=== PATIENT | female | born 1945 | race Caucasian/White ===

== ENCOUNTER 2016-12-27 08:15 | Emergency (ER) | payer MEDICARE, BC ==
[2016-12-27] MEDS ORDERED: Ketorolac 60 MG/2 ML SDV IM ONE (09:06)
--- NOTE | 2016-12-27 09:10 | EDM.PDOC ---
ED HPI GENERAL MEDICAL PROBLEM - General Chief Complaint: Genitourinary Problem Stated Complaint: KIDNEY STONES? Time Seen by Provider: 12/27/16 08:59 Source of Information: Reports: Patient, Family, RN Notes Reviewed History Limitations: Reports: No Limitations - History of Present Illness INITIAL COMMENTS - FREE TEXT/NARRATIVE: 71-year-old female presents emergency department day complaint of right flank pain, she has a known history of nephrolithiasis with retained stones last kidney stone was about 8 years ago. For this particular event she states started at 5:30 this morning sudden onset of sharp pain in the right flank that we will wax and wane she has not noticed any blood in her urine does get nauseated with the pain right flank Pain Score (Numeric/FACES): 4 - Related Data Allergies Allergy/AdvReac Type Severity Reaction Status Date / Time ELISEO Inhibitors Allergy Cough Verified 12/27/16 08:31 lisinopril Allergy Cough Verified 12/27/16 08:31 meperidine [From Demerol] Allergy Cough Verified 12/27/16 08:31 promazine Allergy Anaphylactic Verified 12/27/16 09:24 Shock Home Meds: Home Meds Aspirin 81 mg PO DAILY 12/27/16 [History] Celecoxib 200 mg PO BID 12/27/16 [History] Fluticasone/Salmeterol [Advair 250-50 Diskus] 1 inh PO BID 12/27/16 [History] Levothyroxine 112 mcg PO ACBREAKFAST 12/27/16 [History] Melatonin 20 mg PO DAILY 12/27/16 [History] Metoprolol Succinate [Toprol XL] 25 mg PO DAILY 12/27/16 [History] Omeprazole 40 mg PO BIDAC 12/27/16 [History] Sennosides [Senokot] 8.6 mg PO PRN 12/27/16 [History] Simvastatin [Zocor] 20 mg PO BEDTIME 12/27/16 [History] Tiotropium [Spiriva HandiHaler] 18 mcg INH DAILY 12/27/16 [History] traMADol [Ultram] 50 mg PO Q4H PRN 12/27/16 [History] Past Medical History Cardiovascular History: Reports: High Cholesterol, Hypertension Respiratory History: Reports: Bronchitis, Recurrent, COPD Gastrointestinal History: Reports: Chronic Constipation, GERD, Irritable Bowel Syndrome, Other (See Below) Other Gastrointestinal History: Vela's esophagus,pancreatic cyst Genitourinary History: Reports: Renal Calculus, Other (See Below) Other Genitourinary History: urinary frequency CASER History: Reports: Musculoskeletal History: Reports: Arthritis, Other (See Below) Other Musculoskeletal History: degenerative joint disease Neurological History: Reports: Migraines Psychiatric History: Reports: Depression Endocrine/Metabolic History: Reports: Diabetes, Type II, Hypothyroidism - Past Surgical History Cardiovascular Surgical History: Reports: None GI Surgical History: Reports: Cholecystectomy, Hernia Repair/Other, [place] Fundoplication, Other (See Below) Other GI Surgeries/Procedures: choledocojejunostomy 08/28 Female Surgical History: Reports: Hysterectomy, Kidney stone extraction Musculoskeletal Surgical History: Reports: Carpal Tunnel, Knee Replacement Social & Family History - Tobacco Use Smoking Status *Q: Never Smoker - Recreational Drug Use Recreational Drug Use: No ED ROS GENERAL - Review of Systems Review Of Systems: See Below Constitutional: Denies: Fever, Chills HEENT: Reports: No Symptoms Respiratory: Reports: No Symptoms Cardiovascular: Reports: No Symptoms GI/Abdominal: Reports: Nausea : Reports: Flank Pain. Denies: Discharge, Dysuria, Frequency Musculoskeletal: Reports: No Symptoms ED EXAM, RENAL/ - Physical Exam Exam: See Below Exam Limited By: No Limitations General Appearance: Alert, Mild Distress Respiratory/Chest: No Respiratory Distress, Lungs Clear, Normal Breath Sounds, No Accessory Muscle Use Cardiovascular: Regular Rate, Rhythm, No Murmur GI/Abdominal: Normal Bowel Sounds, Tender (Right flank). No: Distended Course - Vital Signs Last Recorded V/S: Last Vital Signs Temp 100.6 F 12/27/16 09:50 Pulse 70 12/27/16 09:50 Resp 16 12/27/16 09:50 BP 124/66 12/27/16 09:50 Pulse Ox 95 12/27/16 09:50 - Orders/Labs/Meds Orders: Active Orders 24 hr Category Date Time Status Abdomen Pelvis wo Cont [CT] Stat Exams 12/27/16 09:07 Taken Labs: Laboratory Tests 12/27/16 12/27/16 12/27/16 Range/Units 09:51 10:17 10:21 WBC 9.8 (4.5-11.0) K/uL RBC 3.79 (3.30-5.50) M/uL Hgb 11.5 L (12.0-15.0) g/dL Hct 33.5 L (36.0-48.0) % MCV 88 (80-98) fL MCH 30 (27-31) pg MCHC 34 (32-36) % Plt Count 205 (150-400) K/uL Neut % (Auto) 77 H (36-66) % Lymph % (Auto) 15 L (24-44) % [place] % (Auto) 7 H (2-6) % Eos % (Auto) 1 L (2-4) % Baso % (Auto) 0 (0-1) % Sodium (140-148) mmol/L Potassium (3.6-5.2) mmol/L Chloride (100-108) mmol/L Carbon Dioxide (21-32) mmol/L Anion Gap (5.0-14.0) mmol/L BUN (7-18) mg/dL Creatinine (0.6-1.0) mg/dL Est Cr Clr Drug Dosing mL/min Estimated GFR (MDRD) (>60) Glucose (74-106) mg/dL Lactic Acid 0.9 (0.4-2.0) mmol/L Calcium (8.5-10.1) mg/dL Urine Color Yellow Urine Appearance Clear Urine pH 5.0 (4.5-8.0) Ur Specific [place] 1.015 (1.008-1.030) Urine Protein Negative (NEGATIVE) mg/dL Urine Glucose (UA) Normal (NEGATIVE) mg/dL Urine Ketones Negative (NEGATIVE) mg/dL Urine Occult Blood Negative (NEGATIVE) Urine Nitrite Negative (NEGATIVE) Urine Bilirubin Small (NEGATIVE) Urine Urobilinogen 1 (NORMAL) mg/dL Ur Leukocyte Esterase Negative (NEGATIVE) Urine RBC 0-5 (0-5) Urine WBC 0-5 (0-5) Ur Epithelial Cells Few Amorphous Sediment Not seen Urine Bacteria Not seen Urine Mucus Moderate 06/18/17 Range/Units 10:22 WBC (4.5-11.0) K/uL RBC (3.30-5.50) M/uL Hgb (12.0-15.0) g/dL Hct (36.0-48.0) % MCV (80-98) fL MCH (27-31) pg MCHC (32-36) % Plt Count (150-400) K/uL Neut % (Auto) (36-66) % Lymph % (Auto) (24-44) % [place] % (Auto) (2-6) % Eos % (Auto) (2-4) % Baso % (Auto) (0-1) % Sodium 141 (140-148) mmol/L Potassium 4.1 (3.6-5.2) mmol/L Chloride 106 (100-108) mmol/L Carbon Dioxide 25 (21-32) mmol/L Anion Gap 10.5 (5.0-14.0) mmol/L BUN 19 H (7-18) mg/dL Creatinine 1.4 H (0.6-1.0) mg/dL Est Cr Clr Drug Dosing 34.13 mL/min Estimated GFR (MDRD) 37 L (>60) Glucose 100 (74-106) mg/dL Lactic Acid (0.4-2.0) mmol/L Calcium 8.8 (8.5-10.1) mg/dL Urine Color Urine Appearance Urine pH (4.5-8.0) Ur Specific [place] (1.008-1.030) Urine Protein (NEGATIVE) mg/dL Urine Glucose (UA) (NEGATIVE) mg/dL Urine Ketones (NEGATIVE) mg/dL Urine Occult Blood (NEGATIVE) Urine Nitrite (NEGATIVE) Urine Bilirubin (NEGATIVE) Urine Urobilinogen (NORMAL) mg/dL Ur Leukocyte Esterase (NEGATIVE) Urine RBC (0-5) Urine WBC (0-5) Ur Epithelial Cells Amorphous Sediment Urine Bacteria Urine Mucus Meds: Medications Discontinued Medications Generic Name Dose Route Start Last Admin Trade Name Freq PRN Reason Stop Dose Admin Ketorolac Tromethamine 60 mg 12/27/16 09:06 12/27/16 09:13 Toradol IM 12/27/16 09:07 60 mg ONETIME ONE Administration Departure - Departure Time of Disposition: 10:57 Disposition: Home, Self-Care 01 Condition: Good Clinical Impression: Community acquired pneumonia - Discharge Information Forms: ED Department Discharge Additional Instructions: Take full course of antibiotics, Please followup with your primary care provider in 5-7 days if not better, please call return to the emergency department with worsening of symptoms. - My Orders Last 24 Hours: My Active Orders 12/27/16 09:07 Abdomen Pelvis wo Cont [CT] Stat - Assessment/Plan Last 24 Hours: My Active Orders 12/27/16 09:07 Abdomen Pelvis wo Cont [CT] Stat Plan: Assessment Acuity = acute Site and laterality = bilateral community-acquired pneumonia comp came patient with known history of chronic renal failure and hypertension Etiology = suspicious for bacterial cause Manifestations = flank pain Location of injury = home Lab values = CBC normal limits granting elevated 1.4 consistent with chronic renal failure stage G IIIB, CT scan demonstrates no obstructing stones however does have a bilateral lower lobe pneumonia Plan I did review options with her her current 65 score was 1 puts her at a lower risk elected to treat with levofloxacin 1 tablet 500 mg daily 10 days follow- up with primary care upon return home Patient was in agreement with the plan all questions were answered, they were instructed to return to the emergency department or call for worsening symptoms. This note was dictated using [employer] voice recognition software please call with any questions.
[2016-12-27 09:51] VITALS: BP 124/66
== END 2016-12-27 11:26 | disposition home or self-care (01) ==
LOC: JP.ED 08:15
DX: J18.9 Pneumonia, unspecified organism (principal); E78.00 Pure hypercholesterolemia, unspecified; I10 Essential (primary) hypertension; G43.909 Migraine, unspecified, not intractable, without status migrainosus; J44.9 Chronic obstructive pulmonary disease, unspecified; K21.9 Gastro-esophageal reflux disease without esophagitis; M19.90 Unspecified osteoarthritis, unspecified site; F32.9 Major depressive disorder, single episode, unspecified; E11.9 Type 2 diabetes mellitus without complications; E03.9 Hypothyroidism, unspecified; Z88.8 Allergy status to other drugs, medicaments and biological substances; Z90.710 Acquired absence of both cervix and uterus; Z98.890 Other specified postprocedural states; Z90.49 Acquired absence of other specified parts of digestive tract; Z96.659 Presence of unspecified artificial knee joint; Z79.82 Long term (current) use of aspirin; Z79.899 Other long term (current) drug therapy
CPT/HCPCS: 36415; 74176; 80048; 81001; 83605; 85025; 96372; 99284; J1885